=== PATIENT | female | born 1985 | race American Indian/Alaskan Native ===

== ENCOUNTER 2022-01-01 11:32 | Emergency (ER) | payer MEDICAID, OTHER ==
[~2022-01-01] VITALS: Ht 152.4 cm; Wt 72.6 kg
[2022-01-01 11:46] VITALS: BP 106/72
[2022-01-01] MEDS ORDERED: IPRATROPIUM BROM 0.5 MG/2.5ML INH SOL NEB ONE (12:00)
[2022-01-01] MEDS ORDERED: methylPREDNISolone SOD SUCC 125 MG/2 ML VL IV ONE (12:00)
[2022-01-01] MEDS ORDERED: ALBUTEROL SULF 2.5 MG/0.5ML(0.5%) NEB SOLN NEB ONE (12:00)
[2022-01-01 12:12] LABS: Basophils # (auto) 0.1 10 ^3/uL (0-0.2); Basophils % (auto) 0.7 % (0.0-2.0); Eosinophils # (auto) 0.6 10 ^3/uL (0-0.8); Eosinophils % (auto) 6.5 % (0.0-7.0); Hematocrit 36.9 % (36.0-46.0); Hemoglobin 12.8 g/dL (12.2-16.2); Lymphocytes # (auto) 1.1 10 ^3/uL (0.4-5.4); Mean Corpuscular Hgb Conc. 34.8 g/dL (32.0-36.0); Mean Corpuscular Volume 92.1 fL (80.0-100.0); Monocytes # (auto) 0.4 10 ^3/uL (0-1.3); Monocytes % (auto) 4.6 % (0.0-12.0); Neutrophils # (auto) 6.7 10 ^3/uL (1.6-8.6); Neutrophils % (auto) 76.2 % (37.0-80.0); Nucleated Red Blood Cells % 0.2 %; Red Blood Cells 4.01 10^6/uL (4.0-5.20); Red Cell Distribution Width 12.7 % (11.8-14.3); White Blood Cell 8.8 10^3/uL (4.4-10.8)
[2022-01-01 12:20] LABS: Albumin 3.5 g/dL (3.4-5.0); Calcium 8.5 mg/dL (8.5-10.1); Magnesium 2.2 mg/dL (1.6-2.6); Potassium 3.4 mmol/L (3.5-5.1)
[2022-01-01 12:22] LABS: BUN/Creatinine Ratio 15.4
[2022-01-01 12:25] LABS: Bilirubin, Total 0.1 mg/dL (0.2-1.0); Total Protein 6.9 g/dL (6.4-8.2)
[2022-01-02] MEDS ORDERED: ALBU0.084 IN (06:09)
[2022-01-02] MEDS ORDERED: PRED20TA2 PO (06:09)
[2022-01-02] MEDS ORDERED: ALBU108A5 IN (06:09)
== END 2022-01-01 17:38 | disposition left against medical advice (07) ==
LOC: ER 11:32
DX: J45.901 Unspecified asthma with (acute) exacerbation (principal); Z87.891 Personal history of nicotine dependence; Z88.0 Allergy status to penicillin; Z88.1 Allergy status to other antibiotic agents
CPT/HCPCS: 36415; 80053; 83735; 85025; 93005; 94640; 96374; 99284; J2930; J7644

== ENCOUNTER 2022-01-02 02:16 | Emergency (ER) | payer MEDICAID ==
[~2022-01-02] VITALS: Ht 162.6 cm; Wt 67.4 kg
[2022-01-02] MEDS ORDERED: ALBUTEROL SULF 2.5 MG/0.5ML(0.5%) NEB SOLN ONE (02:27)
[2022-01-02] MEDS ORDERED: predniSONE 20 MG TAB PO ONE (02:30)
[2022-01-02] MEDS ORDERED: ALBUTEROL SULF 2.5 MG/0.5ML(0.5%) NEB SOLN NEB ONE (02:30)
[2022-01-02 06:00] VITALS: BP 111/70
[2022-01-02] MEDS ORDERED: ALBU0.084 IN (06:09)
[2022-01-02] MEDS ORDERED: PRED20TA2 PO (06:09)
[2022-01-02] MEDS ORDERED: ALBU108A5 IN (06:09)
== END 2022-01-02 06:16 | disposition home or self-care (01) ==
LOC: ER 02:16
DX: J45.901 Unspecified asthma with (acute) exacerbation (principal); Z98.51 Tubal ligation status; Z87.891 Personal history of nicotine dependence
CPT/HCPCS: 94644; 99285; J7512

== ENCOUNTER 2022-06-17 17:30 | Emergency (ER) | payer MEDICAID ==
[~2022-06-17] VITALS: Ht 152.4 cm; Wt 70.5 kg
[~2022-06-17 17:30] MED LIST: ALBU0.084 IN; ALBU108A5 IN; PRED20TA2 PO
[2022-06-17 17:42] VITALS: BP 118/66
== END 2022-06-18 01:57 | disposition left against medical advice (07) ==
LOC: ER 17:30
DX: R05.9 Cough, unspecified (principal); J45.909 Unspecified asthma, uncomplicated; Z53.21 Procedure and treatment not carried out due to patient leaving prior to being seen by health care provider

== ENCOUNTER 2022-06-29 20:52 | Emergency (ER) | payer MEDICAID ==
[~2022-06-29] VITALS: Ht 152.4 cm; Wt 63.0 kg
[2022-06-29 20:59] VITALS: BP 111/65
[2022-06-29] MEDS ORDERED: IPRATROPIUM BROM 0.5 MG/2.5ML INH SOL HHN ONE (21:00)
[2022-06-29] MEDS ORDERED: methylPREDNISolone SOD SUCC 125 MG/2 ML VL IV ONE (21:00)
[2022-06-29] MEDS ORDERED: ALBUTEROL SULF 2.5 MG/0.5ML(0.5%) NEB SOLN HHN ONE (21:00)
[2022-06-29 22:37] LABS: Basophils # (auto) 0 10 ^3/uL (0-0.2); Basophils % (auto) 0.5 % (0.0-2.0); Eosinophils # (auto) 0.3 10 ^3/uL (0-0.8); Eosinophils % (auto) 3.4 % (0.0-7.0); Hematocrit 39.1 % (36.0-46.0); Hemoglobin 13.3 g/dL (12.2-16.2); Lymphocytes # (auto) 0.8 10 ^3/uL (0.4-5.4); Mean Corpuscular Hemoglobin 31.9 pg (28.0-32.0); Mean Corpuscular Hgb Conc. 34.1 g/dL (32.0-36.0); Mean Corpuscular Volume 93.6 fL (80.0-100.0); Monocytes # (auto) 0.3 10 ^3/uL (0-1.3); Monocytes % (auto) 3.1 % (0.0-12.0); Nucleated Red Blood Cells % 0.1 %; Red Blood Cells 4.18 10^6/uL (4.0-5.20); Red Cell Distribution Width 12.6 % (11.8-14.3); White Blood Cell 8.4 10^3/uL (4.4-10.8)
[2022-06-29 22:54] LABS: Alanine Aminotransferase 19 U/L (13-56); Albumin 3.5 g/dL (3.4-5.0); Anion Gap 11 (5-15); Aspartate Aminotransferase 7 U/L (15-37); BUN/Creatinine Ratio 18.2; Blood Urea Nitrogen 12 mg/dL (7-18); Calcium 8.1 mg/dL (8.5-10.1); Carbon Dioxide 22 mmol/L (21-32); Chloride 109 mmol/L (98-107); GFR African American 131 mL/min; GFR Non-African American 108 mL/min; Glucose 137 mg/dL (74-106); Potassium 3.1 mmol/L (3.5-5.1); Sodium 142 mmol/L (136-145)
[2022-06-29 22:56] LABS: Alkaline Phosphatase 83 U/L (45-117); Bilirubin, Total 0.4 mg/dL (0.2-1.0); Total Protein 6.9 g/dL (6.4-8.2)
[2022-06-30] MEDS ORDERED: PRED20TA2 PO (00:15)
[2022-06-30] MEDS ORDERED: ALBUAER3 IN (00:15)
[2022-06-30] MEDS ORDERED: ALBU1.257 IN (00:15)
== END 2022-06-30 00:33 | disposition home or self-care (01) ==
LOC: ER 20:53
DX: J45.902 Unspecified asthma with status asthmaticus (principal); Z87.891 Personal history of nicotine dependence; Z98.51 Tubal ligation status; Z20.822 Contact with and (suspected) exposure to COVID-19; Z88.0 Allergy status to penicillin
CPT/HCPCS: 36415; 71046; 80053; 85025; 87426; 94644; 96374; 99284; J2930; J7644

== ENCOUNTER 2023-07-20 09:20 | Emergency (ER) | payer MEDICAID ==
[~2023-07-20] VITALS: Ht 152.4 cm; Wt 77.2 kg
[~2023-07-20 09:20] MED LIST changes: +ALBU1.258 IN; +ALBUAER3 IN
[2023-07-20] MEDS ORDERED: ALBUTEROL MEDNEB 2.5 mg/3ml NEB NEB ONE (09:30)
[2023-07-20] MEDS ORDERED: IPRATROPIUM BROM 0.5 MG/2.5ML INH SOL NEB ONE (09:30)
[2023-07-20 09:49] VITALS: BP 114/57; PULSE 112; RESP 18; O2SAT 98
[2023-07-20] MEDS ORDERED: PRED20TA2 PO (10:22)
[2023-07-20] MEDS ORDERED: ALBU108A5 IN (10:22)
[2023-07-20] MEDS ORDERED: ALB5IS NEB (10:22)
== END 2023-07-20 10:35 | disposition home or self-care (01) ==
LOC: ER 09:20
DX: J45.901 Unspecified asthma with (acute) exacerbation (principal); Z98.51 Tubal ligation status; Z87.891 Personal history of nicotine dependence
CPT/HCPCS: 71045; 94640; 99283; J7644

== ENCOUNTER 2023-08-21 12:25 | Inpatient (IN) | payer MEDICAID ==
[~2023-08-21] VITALS: Ht 152.4 cm; Wt 76.1 kg
[2023-08-21] VITALS (7 sets, daily range): BP systolic 103–110; BP diastolic 56–68; PULSE 107–120; RESP 16–21; TEMP 98.2; O2SAT 95–100
[~2023-08-21 12:25] MED LIST changes: +ALB5IS NEB
[2023-08-21] MEDS ORDERED: IPRATROPIUM BROM 0.5 MG/2.5ML INH SOL NEB ONE (12:45)
[2023-08-21] MEDS ORDERED: methylPREDNISolone SOD SUCC 125 MG/2 ML VL IV ONE (12:45)
[2023-08-21] MEDS ORDERED: ALBUTEROL SULF 2.5 MG/0.5ML(0.5%) NEB SOLN NEB ONE ×2 (12:45→13:05)
[2023-08-21] MEDS ORDERED: MAGNESIUM SULFATE 1GM/100ML 100 ML IV ONE (12:45)
[2023-08-21 13:14] LABS: Basophils # (auto) 0.1 10 ^3/uL (0-0.2); Basophils % (auto) 1.3 % (0.0-2.0); Eosinophils # (auto) 0.7 10 ^3/uL (0-0.8); Eosinophils % (auto) 11.2 % (0.0-7.0); Hematocrit 39.1 % (36.0-46.0); Lymphocytes # (auto) 1.4 10 ^3/uL (0.4-5.4); Lymphocytes % (auto) 21.9 % (10.0-50.0); Mean Corpuscular Hemoglobin 30.5 pg (28.0-32.0); Mean Corpuscular Hgb Conc. 33.1 g/dL (32.0-36.0); Monocytes # (auto) 0.4 10 ^3/uL (0-1.3); Monocytes % (auto) 5.7 % (0.0-12.0); Neutrophils # (auto) 3.9 10 ^3/uL (1.6-8.6); Neutrophils % (auto) 59.9 % (37.0-80.0); Nucleated Red Blood Cells % 0.1 %; Red Blood Cells 4.25 10^6/uL (4.0-5.20); Red Cell Distribution Width 13.2 % (11.8-14.3); White Blood Cell 6.5 10^3/uL (4.4-10.8)
[2023-08-21 13:33] LABS: Alanine Aminotransferase 18 U/L (7-40); Alkaline Phosphatase 72 U/L (46-116)
[2023-08-21 13:34] LABS: Anion Gap 10 (5-15); Aspartate Aminotransferase 14 U/L (13-40); Bilirubin, Total 0.4 mg/dL (0.2-1.0); Calcium 9.1 mg/dL (8.5-10.1); Carbon Dioxide 24 mmol/L (20-30); Chloride 107 mmol/L (98-107); Glucose 116 mg/dL (74-106); Potassium 4.1 mmol/L (3.5-5.1); Sodium 141 mmol/L (136-145); Total Protein 5.9 g/dL (5.7-8.2)
[2023-08-21 14:03] LABS: BUN/Creatinine Ratio 15.6 (10.0-20.0); Blood Urea Nitrogen 10 mg/dL (9-23)
[2023-08-21] MEDS ORDERED: ACETAMINOPHEN 325 MG TAB PO PRN (16:00)
[2023-08-21] MEDS ORDERED: ONDANSETRON HCL 4 MG/2 ML VIAL IV PRN (16:00)
[2023-08-21 16:07] LABS: COVID19 ANTIGEN SOFIA FIA NEGATIVE (NEGATIVE); Rapid Influenza A Negative (Negative); Rapid Influenza B Negative (Negative); Respiratory Syncytial Virus Ag Negative
[2023-08-21] MEDS: ALBUTEROL SULF 2.5 MG/0.5ML(0.5%) NEB SOLN NEB SCH ×2 (18:10→22:00)
[2023-08-21] MEDS: IPRATROPIUM BROM 0.5 MG/2.5ML INH SOL NEB SCH ×2 (18:10→22:00)
[2023-08-21] MEDS: guaiFENesin 200 MG/10 ML UD GT PRN (20:11)
[2023-08-21] MEDS: methylPREDNISolone SOD SUCC 40 MG/ML VL IV SCH (22:13)
[2023-08-22] VITALS (16 sets, daily range): BP systolic 110–119; BP diastolic 53–73; PULSE 92–130; RESP 16–20; TEMP 97.8–98.3; O2SAT 94–99
[2023-08-22] MEDS: guaiFENesin 200 MG/10 ML UD GT PRN (05:31)
[2023-08-22] MEDS: methylPREDNISolone SOD SUCC 40 MG/ML VL IV SCH ×3 (05:31→21:22)
[2023-08-22 06:26] LABS: Hematocrit 39.1 % (36.0-46.0); Hemoglobin 12.9 g/dL (12.2-16.2); Mean Corpuscular Hemoglobin 30.8 pg (28.0-32.0); Mean Corpuscular Hgb Conc. 33.1 g/dL (32.0-36.0); Red Cell Distribution Width 13.2 % (11.8-14.3); White Blood Cell 18.8 10^3/uL (4.4-10.8)
[2023-08-22 06:31] LABS: Alanine Aminotransferase 22 U/L (7-40); Albumin 4.1 g/dL (3.2-4.8); Alkaline Phosphatase 72 U/L (46-116); Anion Gap 8 (5-15); Aspartate Aminotransferase 18 U/L (13-40); Blood Urea Nitrogen 13 mg/dL (9-23); Calcium 9.3 mg/dL (8.5-10.1); Carbon Dioxide 22 mmol/L (20-30); Chloride 109 mmol/L (98-107); Glucose 148 mg/dL (74-106); Potassium 4.5 mmol/L (3.5-5.1); Sodium 139 mmol/L (136-145)
[2023-08-22 06:32] LABS: Basophils % (manual) 0 (0.0-2.0); Bilirubin, Total 0.4 mg/dL (0.2-1.0); Blast Cells 0; Eosinophils % (manual) 0 (0-7); Metamyelocytes % 0; Myelocytes % 0; Reactive Lymphocytes 0; Total Protein 6.4 g/dL (5.7-8.2)
[2023-08-22] MEDS: IPRATROPIUM BROM 0.5 MG/2.5ML INH SOL NEB SCH ×5 (06:52→21:56)
[2023-08-22] MEDS: ALBUTEROL SULF 2.5 MG/0.5ML(0.5%) NEB SOLN NEB SCH ×5 (06:52→21:55)
[2023-08-22 08:12] LABS: Platelet Estimate Adequate
[2023-08-22 08:16] LABS: Band Neutrophils % (manual) 1; Lymphocytes % (manual) 2 (10.0-50.0); Monocytes % (manual) 2 (0-12); Promyelocytes % 2
[2023-08-22] MEDS: PANTOPRAZOLE 40 MG TAB PO SCH (09:15)
[2023-08-22] MEDS ORDERED: guaiFENesin 200 MG/10 ML UD PO PRN (10:00)
[2023-08-22] MEDS ORDERED: MONTELUKAST SODIUM 10 MG TAB PO ONE (10:00)
[2023-08-22] MEDS ORDERED: cefTRIAXone 1GM/50ML D5W 50 ML IV ONE (10:00)
[2023-08-22] MEDS: AZITHROMYCIN 250 MG TAB PO SCH (10:48)
[2023-08-22] MEDS: BUDESONIDE (INHALATION) 0.5 MG/2 ML NEB NEB SCH ×2 (10:57→17:56)
[2023-08-22] MEDS ORDERED: MONTELUKAST SODIUM 10 MG TAB PO SCH (22:00)
[2023-08-23] VITALS (8 sets, daily range): BP systolic 104–128; BP diastolic 61–78; PULSE 81–102; RESP 18; TEMP 37.2; O2SAT 96–100
[2023-08-23] MEDS: ALBUTEROL SULF 2.5 MG/0.5ML(0.5%) NEB SOLN NEB SCH ×2 (05:50→10:19)
[2023-08-23] MEDS: BUDESONIDE (INHALATION) 0.5 MG/2 ML NEB NEB SCH (05:50)
[2023-08-23] MEDS: IPRATROPIUM BROM 0.5 MG/2.5ML INH SOL NEB SCH ×2 (05:50→10:19)
[2023-08-23] MEDS ORDERED: cefTRIAXone 1GM/50ML D5W 50 ML IV SCH (09:00)
[2023-08-23] MEDS: PANTOPRAZOLE 40 MG TAB PO SCH (09:35)
[2023-08-23] MEDS: AZITHROMYCIN 250 MG TAB PO SCH (09:35)
[2023-08-23] MEDS ORDERED: PRED20TA2 PO (09:49)
[2023-08-23] MEDS ORDERED: ALBUAER3 IN (09:49)
[2023-08-23] MEDS ORDERED: ALBU1.258 IN (09:49)
[2023-08-23] MEDS ORDERED: BUDE1AER4 IN (09:49)
[2023-08-23] MEDS ORDERED: AZITTAB2 PO (09:49)
[2023-08-23] MEDS: methylPREDNISolone SOD SUCC 40 MG/ML VL IV SCH (10:00)
[2023-08-23] MEDS ORDERED: methylPREDNISolone SOD SUCC 125 MG/2 ML VL ONE (10:28)
== END 2023-08-23 13:45 | disposition home or self-care (01) | DRG 137 ==
LOC: ER 12:25 → OVERFLOW 16:04 → CENTRAL 17:33
PROVIDERS: ADMIT Nurse Practitioner Family; ATTEND Internal Medicine
DX: J15.69 Pneumonia due to other Gram-negative bacteria (principal); J45.901 Unspecified asthma with (acute) exacerbation; E66.9 Obesity, unspecified; Z88.0 Allergy status to penicillin; Z68.32 Body mass index [BMI] 32.0-32.9, adult; Z20.822 Contact with and (suspected) exposure to COVID-19; J15.9 Unspecified bacterial pneumonia
CPT/HCPCS: 36415; 71045; 80053; 83880; 84484; 85007; 85025; 85027; 87426; 87804; 87807; 94640; 94644; 96365; 96375; G0378; J0696

== ENCOUNTER 2024-01-13 18:02 | Emergency (ER) | payer MEDICAID ==
[~2024-01-13] VITALS: Ht 152.4 cm; Wt 75.0 kg
[~2024-01-13 18:02] MED LIST changes: +AZITTAB2 PO; +BUDE1AER4 IN
[2024-01-13] MEDS: methylPREDNISolone SOD SUCC 500 MG in SODIUM CHL 0.9% 100 ML IV ONE (18:15)
[2024-01-13] MEDS: methylPREDNISolone SOD SUCC 125 MG/2 ML VL ONE (18:36)
[2024-01-13 18:41] LABS: Basophils # (auto) 0.1 10 ^3/uL (0-0.2); Basophils % (auto) 1.1 % (0.0-2.0); Eosinophils # (auto) 0.7 10 ^3/uL (0-0.8); Eosinophils % (auto) 9.3 % (0.0-7.0); Hematocrit 40.9 % (36.0-46.0); Hemoglobin 13.6 g/dL (12.2-16.2); Lymphocytes # (auto) 1.9 10 ^3/uL (0.4-5.4); Lymphocytes % (auto) 23.5 % (10.0-50.0); Mean Corpuscular Hemoglobin 30.4 pg (28.0-32.0); Mean Corpuscular Hgb Conc. 33.3 g/dL (32.0-36.0); Mean Corpuscular Volume 91.1 fL (80.0-100.0); Monocytes # (auto) 0.4 10 ^3/uL (0-1.3); Monocytes % (auto) 5.3 % (0.0-12.0); Neutrophils # (auto) 4.8 10 ^3/uL (1.6-8.6); Neutrophils % (auto) 60.8 % (37.0-80.0); Nucleated Red Blood Cells % 0.1 %; Red Blood Cells 4.49 10^6/uL (4.0-5.20); Red Cell Distribution Width 13.3 % (11.8-14.3); White Blood Cell 7.9 10^3/uL (4.4-10.8)
[2024-01-13] MEDS: ALBUTEROL SULF 2.5 MG/0.5ML(0.5%) NEB SOLN NEB ONE (18:43)
[2024-01-13 18:46] VITALS: PULSE 100; RESP 24; TEMP 98.8; O2SAT 97
[2024-01-13 18:50] LABS: Alanine Aminotransferase 12 U/L (7-40); Albumin 4.3 g/dL (3.2-4.8); Alkaline Phosphatase 92 U/L (46-116); Anion Gap 10 (5-15); Aspartate Aminotransferase 12 U/L (13-40); BUN/Creatinine Ratio 15.5 (10.0-20.0); Blood Urea Nitrogen 11 mg/dL (9-23); Calcium 9.4 mg/dL (8.5-10.1); Carbon Dioxide 21 mmol/L (20-30); Chloride 111 mmol/L (98-107); Glucose 92 mg/dL (74-106); Potassium 3.6 mmol/L (3.5-5.1); Sodium 142 mmol/L (136-145)
[2024-01-13 18:51] LABS: Bilirubin, Total 0.2 mg/dL (0.2-1.0); Total Protein 6.7 g/dL (5.7-8.2)
[2024-01-13] MEDS: methylPREDNISolone SOD SUCC 40 MG/ML VL ONE (19:46)
[2024-01-13 20:05] VITALS: BP 109/54
[2024-01-13 20:06] VITALS: PULSE 105; RESP 28; O2SAT 100
[2024-01-13] MEDS ORDERED: ALBUAER3 IN (20:23)
[2024-01-13] MEDS ORDERED: ALB2.5IS NEB (20:23)
[2024-01-13] MEDS ORDERED: PRED20TA2 PO (20:23)
[2024-01-13] MEDS ORDERED: AZITTAB2 PO (20:23)
== END 2024-01-13 20:26 | disposition home or self-care (01) ==
LOC: ER 18:10
DX: J45.901 Unspecified asthma with (acute) exacerbation (principal); R07.89 Other chest pain; Z87.891 Personal history of nicotine dependence
CPT/HCPCS: 36415; 71045; 80053; 84484; 85025; 94640; 96365; 96366; 99284; J2920; J2930

== ENCOUNTER 2024-04-10 12:59 | Emergency (ER) | payer MEDICAID ==
[~2024-04-10] VITALS: Ht 152.4 cm; Wt 75.0 kg
[~2024-04-10 12:59] MED LIST changes: +ALB2.5IS NEB
[2024-04-10] MEDS: ALBUTEROL SULF 2.5 MG/0.5ML(0.5%) NEB SOLN NEB ONE ×2 (13:08→13:52)
[2024-04-10] MEDS: IPRATROPIUM BROM 0.5 MG/2.5ML INH SOL NEB ONE ×2 (13:08→13:52)
[2024-04-10 13:23] VITALS: PULSE 80; RESP 23; O2SAT 100
[2024-04-10 13:39] LABS: Basophils # (auto) 0.1 10 ^3/uL (0-0.2); Basophils % (auto) 0.9 % (0.0-2.0); Eosinophils # (auto) 0.3 10 ^3/uL (0-0.8); Eosinophils % (auto) 4.3 % (0.0-7.0); Hematocrit 41.1 % (36.0-46.0); Lymphocytes # (auto) 2.1 10 ^3/uL (0.4-5.4); Mean Corpuscular Hemoglobin 31.5 pg (28.0-32.0); Mean Corpuscular Volume 92.7 fL (80.0-100.0); Monocytes # (auto) 0.4 10 ^3/uL (0-1.3); Neutrophils # (auto) 3.8 10 ^3/uL (1.6-8.6); Neutrophils % (auto) 56.8 % (37.0-80.0); Nucleated Red Blood Cells % 0.1 %; Red Blood Cells 4.44 10^6/uL (4.0-5.20); Red Cell Distribution Width 13.2 % (11.8-14.3); White Blood Cell 6.6 10^3/uL (4.4-10.8)
[2024-04-10] MEDS: methylPREDNISolone SOD SUCC 125 MG/2 ML VL IV ONE (13:40)
[2024-04-10 13:49] LABS: Chloride 109 mmol/L (98-107); Sodium 143 mmol/L (136-145)
[2024-04-10 13:50] LABS: Anion Gap 9 (5-15); Calcium 9.6 mg/dL (8.7-10.4); Carbon Dioxide 25 mmol/L (20-30)
[2024-04-10 13:55] LABS: BUN/Creatinine Ratio 16.9 (10.0-20.0); Blood Urea Nitrogen 12 mg/dL (9-23); Glucose 94 mg/dL (74-106)
[2024-04-10 15:18] LABS: Urine Bacteria None Seen /hpf (None Seen)
[2024-04-10 15:35] LABS: Urine Amorphous Crystal FEW /hpf (None Seen); Urine Blood Negative /uL (Negative); Urine Clarity Clear (Clear); Urine Color Light-Yellow (Yellow); Urine Protein, UAD Negative (Negative); Urine Urobilinogen Normal (Negative); Urine WBC <1 /hpf (0 - 5); Urine pH 6.5 (5.0-9.0)
[2024-04-10] MEDS ORDERED: ALBU1NEB5 IN (17:19)
[2024-04-10] MEDS ORDERED: AZITTAB2 PO (17:19)
[2024-04-10] MEDS ORDERED: PRED20TA2 PO (17:20)
[2024-04-10 17:26] VITALS: BP 109/66; PULSE 100; RESP 18; TEMP 98.6; O2SAT 98
== END 2024-04-10 17:29 | disposition home or self-care (01) ==
LOC: ER 12:59
DX: J45.901 Unspecified asthma with (acute) exacerbation (principal); R10.2 Pelvic and perineal pain; R10.9 Unspecified abdominal pain; Z98.890 Other specified postprocedural states; Z87.891 Personal history of nicotine dependence
CPT/HCPCS: 36415; 71045; 80048; 81001; 83880; 84484; 84702; 85025; 94640; 96374; 99285; J2919

== ENCOUNTER 2025-04-28 11:41 | Inpatient (IN) | payer MEDICAID ==
[2025-04-28] VITALS (7 sets, daily range): BP systolic 107–115; BP diastolic 65–77; PULSE 78–113; RESP 16–24; TEMP 98–98.1; O2SAT 94–100
[~2025-04-28] VITALS: Ht 152.4 cm; Wt 80.1 kg
[~2025-04-28 11:41] MED LIST changes: +ALBU1NEB5 IN
--- NOTE | 2025-04-28 12:29 | ED.PDOC ---
SOB-HPI HPI Comments 39 y.o female with a history of asthma presents to the ED via EMS for an asthma exacerbation that began 12 hours prior to arrival and worsened in the last 45 minutes, prompting a 911 call. The patient self-administered two home breathing treatments without relief. EMS noted inspiratory and expiratory wheezing with a heart rate of 117 bpm on scene. The patient received a breathing treatment with 0.3mg of EPI en route, which she had slight improvement. The patient is currently unable to complete sentences due to respiratory distress and gestures that her last asthma exacerbation was two months ago. 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-4 ), Web Interface Developer, Oxygen, Treatment (0.3mg Epi ) Modifying Factors: Nothing Associated Signs and Symptoms: None Past Medical History PAST MEDICAL HISTORY: Asthma Surgical History: BTL [employer] History: No Pertinent [employer] History Family History Family History: Reviewed,noncontributory to illness Social History Smoker: Quit Greater Than 1 Year, Cigarettes Alcohol: Denies ETOH Use Drugs: Denies Drug Use Lives In: Home Constitutional: denies: chills, diaphoresis, fatigue, fever, malaise, sweats, weakness, others EENTM: denies: blurred vision, double vision, ear bleeding, ear discharge, ear drainage, ear pain, ear ringing, eye pain, eye redness, hearing loss, mouth pain, mouth swelling, nasal discharge, nose bleeding, nose congestion, nose pain, photophobia, tearing, throat pain, throat swelling, voice changes, others Respiratory: reports: SOB at rest, shortness of breath, SOB with excertion; denies: cough, hemoptysis, orthopnea, stridor, wheezing, others Cardiovascular: denies: chest pain, dizzy spells, diaphoresis, Dyspnea on exertion, edema, irregular heart beat, left arm pain, lightheadedness, palpitations, PND, syncope, others Gastrointestinal: denies: abdomen distended, abdominal pain, blood streaked bowels, constipated, diarrhea, dysphagia, difficulty swallowing, hematemesis, melena, nausea, poor appetite, poor fluid intake, rectal bleeding, rectal pain, vomiting, others Genitourinary: denies: abnormal vagina bleeding, burning, dyspareunia, dysuria, flank pain, frequency, hematuria, incontinence, pain, , vagina discharge, urgency, others Neurological: denies: dizziness, fainting, headache, left sided numbness, left sided weakness, numbness, paresthesia, pre-existing deficit, right sided numbness, right sided weakness, seizure, speech problems, tingling, tremors, weakness, others Musculoskeletal: denies: back pain, gout, joint pain, joint swelling, muscle pain, muscle stiffness, neck pain, others Integumetry: denies: bruises, change in color, change in hair/nails, dryness, laceration, lesions, lumps, rash, wounds, others Allergic/Immunocompromised: denies: Difficulty Healing, Frequent Infections, Hives, Itching, others Hematologic/Lymphatic: denies: anemia, blood clots, easy bleeding, easy bruising, swollen glands, others Endocrine: denies: excessive hunger, excessive sweating, excessive thirst, excessive urination, flushing, intolerance to cold, intolerance to heat, unexplained weight gain, unexplained weight loss, others Psychiatric: denies: anxiety, bipolar disorder, depression, hopeless, panic disorder, schizophrenia, sleepless, suicidal, others All Other Systems: Reviewed and Negative Physical Exam General Appearance: Moderate Distress HEENT: Normal ENT Inspection, Pharynx Normal, TMs Normal Neck: Full Range of Motion, Non-Tender, Normal, Normal Inspection Respiratory: Accessory Muscle Use, Respiratory Distress, Wheezing Cardiovascular: No Edema, No JVD, No Murmur, No Gallop, Normal Peripheral Pulses, Tachycardia Breast Exam: Deferred Gastrointestinal: No Organomegaly, Non Tender, No Pulsatile Mass, Normal Bowel Sounds, Soft Genitalia: Deferred Pelvic: Deferred Rectal: Deferred Extremities: No calf tenderness Musculoskeletal : Apperance: Normal Neurologic: Alert, No Motor Deficits, No Sensory Deficits Cerebellar Function: NOT DONE Reflexes: NOT DONE Skin: Normal Color Peripheral Pulses: 3+ Radial (R), 3+ Radial (L) Lymphatic: No Adenopathy Was a procedure done? Was a procedure done?: No Differential Dx Differential Diagnosis: Anxiety, Asthma, Bronchitis, COPD, Pneumonia, Respiratory Distress, URI X-Ray, Labs, Meds, VS Vital Signs Date Time Temp Pulse Resp B/P (MAP) Pulse Ox O2 Delivery O2 Flow Rate FiO2 04/28/25 11:45 98.1 109 30 105/64 100 98.1 Current Medications Medications (Trade) Dose Ordered Sig/Howie Route Start Time Stop Time Status Last Admin Albuterol (Ventolin Medneb) 20 mg ONCE ONCE NEB 04/28/25 12:30 04/28/25 12:31 DC 04/28/25 12:55 Ipratropium [place] (Atrovent Medneb) 0.5 mg ONCE ONCE NEB 04/28/25 12:30 04/28/25 12:31 DC 04/28/25 12:54 Patient alert. Complaining of shortness a breath. Came in on oxygen. Was given breathing treatment in the field. Continues to use accessory muscles pain Was given steroid. Was given breathing treatment in the ER. History of asthma. Chest x-ray reviewed does show some edema. Was given Lasix. Reviewed her previous visit. Explained to the patient. Continue to monitor. Time of 1ST Reevaluation: 12:10 Reevaluation 1ST: Unchanged Patient Education/Counseling: Diagnosis, Treatment, Prognosis Family Education/Counseling: No Family Present SEPSIS Sepsis Screen Date sepsis recognized/suspect: Apr 28, 2025 Time Sepsis recognized/suspect: 1148 Recent Procedure: No On Antibiotic Therapy: No Respiratory Rate >20: Yes Heart Rate >90: Yes Temp<36 C (96.8 F) or >38.3 C: No SBP <90 or MAP <65 mmHG: No New Acute Mental Status Change: No Is the patient on CPAP, BIPAP,: No Physician Orders Complete Blood Count (04/28/25 12:29) Chest Portable (04/28/25 12:29) Urinalysis (04/28/25 12:29) Basic Metabolic Panel (04/28/25 12:29) Magnesium Sulfate 1gm/100ml (04/28/25 12:30) Vital Signs Date Time Temp Pulse Resp B/P (MAP) Pulse Ox O2 Delivery O2 Flow Rate FiO2 04/28/25 11:45 98.1 109 30 105/64 100 98.1 Medications Medications Dose Ordered Sig/Howie Route Start Time Stop Time Status Last Admin Dose Admin Albuterol 20 mg ONCE ONCE NEB 04/28/25 12:30 04/28/25 12:31 DC 04/28/25 12:55 Ipratropium [place] 0.5 mg ONCE ONCE NEB 04/28/25 12:30 04/28/25 12:31 DC 04/28/25 12:54 Departure 1 Departure Time of Disposition: 13:06 Impression: Primary Impression: Acute asthma exacerbation Qualified Codes: J45.41 - Moderate persistent asthma with (acute) exacerbation Disposition: ADMITTED INPATIENT Admit to: Med Surg Condition: Guarded Critical Care Note Critical Care Time?: Yes (90 min-critical care time only) Stability Stability form required: No I personally scribed for JAYLENE NELSON MD ([email or web address]) on 04/28/25 at 12:29. Electronically submitted by Loyda Wallace ([facility]). JAYLENE NELSON MD Apr 28, 2025 12:29
[2025-04-28] MEDS: IPRATROPIUM BROM 0.5 MG/2.5ML INH SOL NEB ONE (12:54)
[2025-04-28] MEDS: ALBUTEROL SULF 2.5 MG/0.5ML(0.5%) NEB SOLN NEB ONE (12:55)
--- NOTE | 2025-04-28 13:00 | DVH ---
INDICATION: sob TECHNIQUE: Frontal view of the chest. COMPARISON: XY CHEST PORTABLE on DOS: 04/10/24, XY CHEST PORTABLE on DOS: 01/13/24, XY CHEST PORTABLE on DOS: 08/21/23, XY CHEST XRAY 1 VIEW on DOS: 07/20/23, CHEST TWO VIEWS ROUTINE on DOS: 06/29/22 FINDINGS: . The heart and mediastinal contours are grossly unremarkable. There is no evidence of pleural disea se. The lungs are clear. The bony structures of the chest are intact without fracture. IMPRESSION: Mild pulmonary edema
[2025-04-28 13:23] LABS: Hematocrit 37.7 % (36.0-46.0); Hemoglobin 12.9 g/dL (12.2-16.2); Mean Corpuscular Hemoglobin 30.4 pg (28.0-32.0); Mean Corpuscular Volume 88.6 fL (80.0-100.0); Nucleated Red Blood Cells % 0.0 %
[2025-04-28] MEDS: FUROSEMIDE 40 MG/4 ML VIAL IV ONE (13:23)
[2025-04-28] MEDS: methylPREDNISolone SOD SUCC 125 MG/2 ML VL IV ONE (13:23)
[2025-04-28 13:39] LABS: Potassium 3.7 mmol/L (3.5-5.1); Sodium 142 mmol/L (136-145)
[2025-04-28 13:40] LABS: Anion Gap 7 (5-15); Carbon Dioxide 24 mmol/L (20-31)
[2025-04-28] MEDS: MAGNESIUM SULFATE 1GM/100ML 100 ML IV ONE (13:41)
[2025-04-28 13:45] LABS: BUN/Creatinine Ratio 14.9 (10.0-20.0); Blood Urea Nitrogen 10 mg/dL (9-23); Glucose 106 mg/dL (74-106)
[2025-04-28 13:51] LABS: Calcium 8.1 mg/dL (8.7-10.4); Chloride 111 mmol/L (98-107)
[2025-04-28] MEDS ORDERED: ACETAMINOPHEN 325 MG TAB PO PRN (14:15)
[2025-04-28] MEDS ORDERED: ONDANSETRON HCL 4 MG/2 ML VIAL IV PRN (14:15)
[2025-04-28 15:05] LABS: Urine Protein, UAD Negative (Negative)
[2025-04-28 15:14] LABS: Amphetamine Screen, Urine Pos (NEGATIVE); Barbiturate Scree,Urine Neg (NEGATIVE); Benzodiazephine Screen, Urine Neg (NEGATIVE); Cannabinoid Screen, Urine Neg (NEGATIVE); Cocaine Screen, Urine Neg (NEGATIVE); Opiate Scree,Urine Neg (NEGATIVE); Phencyclidine Screen, Urine Neg (NEGATIVE)
--- NOTE | 2025-04-28 18:18 | DVHHPRES ---
History of Present Illness Resident Creating Document: KIKI LIANG RESDIENT History of Present Illness This is a 39-year-old female with past medical history of asthma came to the hospital due to shortness of breaths. Per patient she has shortness of breath since 1 days, use inhaler at home better did not relieved and shortness of breaths which prompted this visit. She also reports of mild chest discomfort. She denies fever, cough, or any recent sick contact. Previous hospitalization: Recurrent hospitalization due to asthma exacerbation, recently was 2 months back has never been intubated PMHx: Asthma PSHx: No significant Family history: No significant Social history: Ex-smoker, denies current drug use Home medication: Albuterol and fluticasone Allergic history: Ampicillin and amoxicillin Patient seen and examined at the bedside. Patient is seen and shortness of breaths. Review of Systems Allergies: Coded Allergies: Amoxicillin (Verified Allergy, Unknown, 01/01/22) Penicillins (Verified Allergy, Unknown, 01/01/22) Medications Current Medications Medications Dose Ordered Sig/Howie Route Start Time Stop Time Status Last Admin Dose Admin Acetaminophen 650 mg Q6HP PRN PO 04/28/25 14:15 Ondansetron HCl 4 mg Q4HP PRN IV 04/28/25 14:15 Enoxaparin Sodium 40 mg DAILY SC 04/29/25 10:00 Methylprednisolone Sodium Succinate 40 mg DAILY IV 04/29/25 10:00 Albuterol 2.5 mg Q6HWA NEB 04/28/25 18:00 Ipratropium [place] 0.5 mg Q6HWA NEB 04/28/25 18:00 Exam Vital Signs Vital Signs Date Time Temp Pulse Resp B/P (MAP) Pulse Ox O2 Delivery O2 Flow Rate FiO2 04/28/25 18:07 104 16 04/28/25 15:00 115/77 (90) 96 04/28/25 14:55 0.0 21 04/28/25 12:00 Simple Mask* 04/28/25 11:45 98.1 98.1 Exam General Appearance: Alert, Oriented X3, Cooperative, No acute distress HEENT: Atraumatic, PERRLA, EOMI, Mucous membrane moist/pink Respiratory: Bilateral rhonchi Cardiovascular: Regular rate, Normal S1, Normal S2, No murmurs, no chest wall tenderness Abdominal: Normal bowel sounds, Soft, No tenderness, No hepatospenomegaly, No masses Extremities: No clubbing, No cyanosis, No edema, Normal pulses, No tenderness/swelling Skin: No rashes, No breakdown, No significant lesion Neuro: Normal gait, Normal speech, Strength at 5/5 X4 ext, Normal tone, Sensation intact, Cranial nerves 3-12 NL, Reflexes 2+ Psych/Mental Status: Mental status NL, Mood NL Labs/Xrays Labs Test 04/28/25 14:16 04/28/25 13:01 Range/Units Urine Color Colorless Yellow Urine Clarity Clear Clear Urine pH 6.5 5.0-9.0 Urine Specific [place] 1.009 1.001-1.035 Urine Protein Negative Negative Urine Ketones Negative Negative Urine Blood Negative Negative /uL Urine Nitrite Negative Negative Urine Bilirubin Negative Negative Urine Urobilinogen Normal Negative mg/dL Urine Leukocyte Esterase Negative Negative /uL Urine RBC 1 0 - 4 /hpf Urine Microscopic WBC 1 0-5 /HPF Urine Squamous Epithelial Cells Few <5 /hpf Urine Bacteria None seen None Seen /hpf Urine Mucus Few None Seen Urine Glucose Normal Normal mg/dL Urine Opiates Screen Neg NEGATIVE Urine Fentanyl Screen Neg NEGATIVE Urine Barbiturates Screen Neg NEGATIVE Urine Phencyclidine Screen Neg NEGATIVE Urine Amphetamines Screen Pos NEGATIVE Urine Benzodiazepines Screen Neg NEGATIVE Urine Cocaine Screen Neg NEGATIVE Urine Cannabinoids Screen Neg NEGATIVE White Blood Count 9.2 4.4-10.8 10^3/uL Red Blood Count 4.25 4.0-5.20 10^6/uL Hemoglobin 12.9 12.2-16.2 g/dL Hematocrit 37.7 36.0-46.0 % Mean Corpuscular Volume 88.6 80.0-100.0 fL Mean Corpuscular Hemoglobin 30.4 28.0-32.0 pg Mean Corpuscular Hemoglobin Concent 34.2 32.0-36.0 g/dL Red Cell Distribution Width 13.9 11.8-14.3 % Platelet Count 295 140-450 10^3/uL Mean Platelet Volume 8.4 6.9-10.8 fL Neutrophils (%) (Auto) 72.3 37.0-80.0 % Lymphocytes (%) (Auto) 15.0 10.0-50.0 % Monocytes (%) (Auto) 6.1 0.0-12.0 % Eosinophils (%) (Auto) 5.9 0.0-7.0 % Basophils (%) (Auto) 0.7 0.0-2.0 % Neutrophils # (Auto) 6.7 1.6-8.6 10 ^3/uL Lymphocytes # (Auto) 1.4 0.4-5.4 10 ^3/uL Monocytes # (Auto) 0.6 0-1.3 10 ^3/uL Eosinophils # (Auto) 0.5 0-0.8 10 ^3/uL Basophils # (Auto) 0.1 0-0.2 10 ^3/uL Nucleated Red Blood Cells 0.0 % Sodium Level 142 136-145 mmol/L Potassium Level 3.7 3.5-5.1 mmol/L Chloride Level 111 H 98-107 mmol/L Carbon Dioxide Level 24 20-31 mmol/L Anion Gap 7 5-15 Blood Urea Nitrogen 10 9-23 mg/dL Creatinine 0.67 0.550-1.02 mg/dL Glomerular Filtration Rate Calc 115 >90 mL/min BUN/Creatinine Ratio 14.9 10.0-20.0 Serum Glucose 106 74-106 mg/dL Calcium Level 8.1 L 8.7-10.4 mg/dL SEPSIS Sepsis Screen Date sepsis recognized/suspect: Apr 28, 2025 Time Sepsis recognized/suspect: 1807 Recent Procedure: No On Antibiotic Therapy: No Respiratory Rate >20: No Heart Rate >90: Yes Temp<36 C (96.8 F) or >38.3 C: No SBP <90 or MAP <65 mmHG: No New Acute Mental Status Change: No Is the patient on CPAP, BIPAP,: No Physician Orders Chest Portable (04/28/25 12:29) Admit (04/28/25 14:14) Code Status (04/28/25 14:14) Vital Signs .PER UNIT PROTOCOL (04/28/25 14:14) Review Orders With Adm. (04/28/25 14:14) Acetaminophen Tablet (Tylenol Tablet) (04/28/25 14:15) Notify Md Of Changes From Base (04/28/25 14:14) Advance Directive (04/28/25 14:14) Patient Condition (04/28/25 14:14) Allergies (04/28/25 14:14) Ondansetron Hcl (Zofran) (04/28/25 14:15) Stat Ekg For Chest Pain (04/28/25 14:14) Notify Md Of Changes From Base (04/28/25 14:14) Oxygen By Nasal Cannula (04/28/25 14:14) Complete Blood Count (04/29/25 04:00) Comprehensive Metabolic Panel (04/29/25 04:00) Methylprednisolone Sod Succ (Solu Medrol (04/29/25 10:00) Albuterol Medneb (Ventolin Medneb) (04/28/25 18:00) Ipratropium Medneb (Atrovent Medneb) (04/28/25 18:00) Enoxaparin Sodium (Lovenox) (04/29/25 10:00) Vital Signs Date Time Temp Pulse Resp B/P (MAP) Pulse Ox O2 Delivery O2 Flow Rate FiO2 04/28/25 18:07 104 16 04/28/25 15:00 94 16 115/77 (90) 96 04/28/25 14:55 78 18 115/77 98 0.0 21 04/28/25 13:30 93 15 113/75 (88) 99 04/28/25 13:23 103/70 04/28/25 12:00 93 19 100 Simple Mask* 6 50 04/28/25 12:00 93 19 106/63 (77) 100 04/28/25 11:45 98.1 109 30 105/64 100 98.1 Laboratory Tests Test 04/28/25 13:01 White Blood Count 9.2 10^3/uL (4.4-10.8) Medications Medications Dose Ordered Sig/Howie Route Start Time Stop Time Status Last Admin Dose Admin Albuterol 20 mg ONCE ONCE NEB 04/28/25 12:30 04/28/25 12:31 DC 04/28/25 12:55 20 MG Furosemide 40 mg ONCE ONCE IV 04/28/25 13:15 04/28/25 13:16 DC 04/28/25 13:23 40 MG Ipratropium [place] 0.5 mg ONCE ONCE NEB 04/28/25 12:30 04/28/25 12:31 DC 04/28/25 12:54 0.5 MG Magnesium Sulfate/ Dextrose 100 ml @ 100 mls/hr ONCE ONCE IV 04/28/25 12:30 04/28/25 13:29 DC 04/28/25 13:41 100 MLS/HR Methylprednisolone Sodium Succinate 125 mg ONCE ONCE IV 04/28/25 12:30 04/28/25 12:31 DC 04/28/25 13:23 125 MG Assessment/Plan Assessment/Plan Acute hypoxic respiratory failure, likely due to asthma exacerbation Asthma exacerbation * Chest x-ray shows, no intrathoracic abnormalities Plan/recommendation * Oxygen through nasal cannula * Breathing treatment * Methylprednisolone DIET: Regular diet DVT PROPHYLAXIS: Lovenox CODE STATUS: Goal of care discussed for more than 18 minutes, full code DISPOSITION: Med/surge Patient's status and plan discussed with the patient. Case discussed with Dr. Pickering. Plan discussed with: Patient, Other (RN) My Orders Orders - KIKI LIANG RESDIKOKO Procedure Category Date Status Time Admit ADMIT 04/28/25 Transmitted 14:14 Code Status CODE 04/28/25 Transmitted 14:14 Vital Signs [facility] 04/28/25 In Process 14:14 Review Orders With [facility] 04/28/25 In Process Adm.Md 14:14 Acetaminophen Tablet PHA 04/28/25 In Process (Tylenol Tablet) 14:15 Notify Md Of Changes [facility] 04/28/25 In Process From Base 14:14 Advance Directive [facility] 04/28/25 In Process 14:14 Patient Condition ORDERS 04/28/25 Transmitted 14:14 Allergies NICK 04/28/25 In Process 14:14 Ondansetron Hcl PHA 04/28/25 In Process (Zofran) 14:15 Stat Ekg For Chest [facility] 04/28/25 In Process Pain 14:14 Notify Md Of Changes [facility] 04/28/25 In Process From Base 14:14 Oxygen By Nasal RT 04/28/25 Transmitted Cannula 14:14 Complete Blood Count LAB 04/29/25 Verified 04:00 Comprehensive LAB 04/29/25 Verified Metabolic Panel 04:00 Methylprednisolone PHA 04/29/25 In Process Sod Succ (Solu Medrol 10:00 Albuterol Medneb PHA 04/28/25 In Process (Ventolin Medneb) 18:00 Ipratropium Medneb PHA 04/28/25 In Process (Atrovent Medneb) 18:00 Enoxaparin Sodium PHA 04/29/25 In Process (Lovenox) 10:00 Date of Service: Apr 28, 2025 Billing Provider: ANTONIO TOURE MD Common Visit Codes: [id number] INP/OBS CARE (HIGH) Secondary Visit Codes: [id number] CARE PLAN 30 MINUTES KIKI LIANG Apr 28, 2025 18:18 ANTONIO TOURE MD Apr 29, 2025 00:57
[2025-04-28] MEDS: ALBUTEROL SULF 2.5 MG/0.5ML(0.5%) NEB SOLN NEB SCH (19:09)
[2025-04-28] MEDS: IPRATROPIUM BROM 0.5 MG/2.5ML INH SOL NEB SCH (19:09)
[2025-04-29] VITALS (16 sets, daily range): BP systolic 102–116; BP diastolic 59–74; PULSE 89–124; RESP 16–20; TEMP 98–98.5; O2SAT 92–100
[2025-04-29 08:08] LABS: Hematocrit 36.3 % (36.0-46.0); Hemoglobin 12.4 g/dL (12.2-16.2); Mean Corpuscular Hemoglobin 30.7 pg (28.0-32.0); Mean Corpuscular Volume 89.7 fL (80.0-100.0); Nucleated Red Blood Cells % 0.0 %
[2025-04-29 08:13] LABS: Alanine Aminotransferase 13 U/L (7-40); Albumin 4.0 g/dL (3.2-4.8); Alkaline Phosphatase 75 U/L (46-116); Anion Gap 10 (5-15); BUN/Creatinine Ratio 15.0 (10.0-20.0); Bilirubin, Total 0.4 mg/dL (0.2-1.0); Blood Urea Nitrogen 9 mg/dL (9-23); Potassium 4.2 mmol/L (3.5-5.1); Sodium 140 mmol/L (136-145); Total Protein 5.9 g/dL (5.7-8.2)
[2025-04-29 08:16] LABS: Calcium 8.4 mg/dL (8.7-10.4); Carbon Dioxide 20 mmol/L (20-31); Chloride 110 mmol/L (98-107); Glucose 129 mg/dL (74-106)
[2025-04-29] MEDS: methylPREDNISolone SOD SUCC 40 MG/ML VL IV SCH (10:04)
[2025-04-29] MEDS: ENOXAPARIN SOD 40 MG/0.4 ML SYRINGE SC SCH (10:04)
[2025-04-29] MEDS: IPRATROPIUM BROM 0.5 MG/2.5ML INH SOL NEB SCH (11:52)
[2025-04-29] MEDS: ALBUTEROL SULF 2.5 MG/0.5ML(0.5%) NEB SOLN NEB SCH (11:55)
[2025-04-29] MEDS: predniSONE 20 MG TAB PO ONE (15:39)
[2025-04-29] MEDS: MONTELUKAST SODIUM 10 MG TAB PO ONE (15:39)
[2025-04-29] MEDS: LORATADINE 10 MG TAB PO ONE (15:40)
[2025-04-29] MEDS: FAMOTIDINE 20 MG TAB PO ONE (15:43)
[2025-04-29] MEDS: FLUTICASONE PROP NASAL SPR 0.05 % (50MCG) 16GM EACHNOSTRI ONE (15:43)
--- NOTE | 2025-04-29 17:12 | DVHPNRES ---
Progress Note Date Seen: Apr 29, 2025 Resident Creating Document: KIKI LIANG RESDIENT Medical Necessity Reason Pt with a Central, PICC or Fol: No Subjective Review of Systems Patient seen and examined at bedside. Patient is feeling better since admission but still complained of shortness of breaths. Objective vital signs Vital Sign Date Time Temp Pulse Resp B/P (MAP) Pulse Ox O2 Delivery O2 Flow Rate FiO2 04/29/25 11:58 89 16 100 04/29/25 11:52 Nasal Cannula 2.0 04/29/25 11:52 28 04/29/25 09:00 98.1 102/59 (73) 98.1 Total Intake and Output 04/28/25 04/28/25 04/29/25 15:00 23:00 07:00 Intake Total 100 ml 400 ml Output Total 0 ml Balance 100 ml 400 ml medications Current Medications Medications Dose Ordered Sig/Howie Route Start Time Stop Time Status Last Admin Dose Admin Acetaminophen 650 mg Q6HP PRN PO 04/28/25 14:15 Ondansetron HCl 4 mg Q4HP PRN IV 04/28/25 14:15 Enoxaparin Sodium 40 mg DAILY SC 04/29/25 10:00 04/29/25 10:04 40 MG Ipratropium [place] 0.5 mg Q4HR NEB 04/29/25 10:00 04/29/25 13:56 0.5 MG Levalbuterol HCl 0.625 mg Q4HR NEB 04/29/25 18:00 Budesonide 0.5 mg BID NEB 04/29/25 22:00 Montelukast Sodium 10 mg HS PO 04/29/25 22:00 Loratadine 10 mg DAILY PO 04/30/25 10:00 Prednisone 40 mg DAILY PO 04/30/25 10:00 Famotidine 20 mg Q12HR PO 04/29/25 22:00 Fluticasone Propionate 50 mcg Q12HR EACHNOSTRI 04/29/25 22:00 Examination General Appearance: Alert, Oriented X3, Cooperative, No acute distress HEENT: Atraumatic, PERRLA, EOMI, Mucous membrane moist/pink Respiratory: Bilateral rhonchi Cardiovascular: Regular rate, Normal S1, Normal S2, No murmurs, no chest wall tenderness Abdominal: Normal bowel sounds, Soft, No tenderness, No hepatospenomegaly, No masses Extremities: No clubbing, No cyanosis, No edema, Normal pulses, No tenderness/swelling Skin: No rashes, No breakdown, No significant lesion Neuro: Normal gait, Normal speech, Strength at 5/5 X4 ext, Normal tone, Sensation intact, Cranial nerves 3-12 NL, Reflexes 2+ Psych/Mental Status: Mental status NL, Mood NL laboratory and microbiology Laboratory Tests 04/29/25 07:15 Test 04/29/25 07:15 Range/Units Serum Glucose 129 H 74-106 mg/dL Labs and/or images reviewed: Labs reviewed by me, Image(s) reviewed by me Problem List/Assessment/Plan Problem List/Assessment/Plan Acute hypoxic respiratory failure, likely due to asthma exacerbation Asthma exacerbation Allergic rhinitis GERD * Chest x-ray shows, no intrathoracic abnormalities Plan/recommendation * Oxygen through nasal cannula * Breathing treatment * Prednisolone 40 mg daily * Montelukast, Flonase, and Pepcid DIET: Regular diet DVT PROPHYLAXIS: Lovenox CODE STATUS: Goal of care discussed for more than 18 minutes, full code DISPOSITION: Med/surge Patient's status and plan discussed with the patient. Case discussed with Dr. Petersen. Plan discussed with: Patient, Other (RN) My Orders My Orders Orders - KIKI LIANG Procedure Category Date Status Time Ipratropium Medneb PHA 04/29/25 In Process (Atrovent Medneb) 10:00 Montelukast Tablet PHA 04/29/25 In Process (Singulair Tablet) 22:00 Prednisone Tablet PHA 04/30/25 In Process 10:00 Famotidine Tablet PHA 04/29/25 In Process (Pepcid Tablet) 22:00 Fluticasone Nasal PHA 04/29/25 In Process [place] (Flonase [place]) 22:00 Loratadine Tablet PHA 04/30/25 In Process (Claritin Tablet) 10:00 Complete Blood Count LAB 04/30/25 Verified 04:00 Comprehensive LAB 04/30/25 Verified Metabolic Panel 04:00 Date of Service: Apr 29, 2025 Billing Provider: SRIKANTH PETERSEN MD Common Visit Codes: [id number] INP/OBS CARE(HIGH) KIKI LIANG RESDIENT Apr 29, 2025 17:12 SRIKANTH PETERSEN MD May 01, 2025 23:01
[2025-04-29] MEDS: BUDESONIDE (INHALATION) 0.5 MG/2 ML NEB NEB SCH (19:00)
[2025-04-29] MEDS: LEVALBUTEROL HCL 1.25 MG/3 ML NEB NEB SCH (19:00)
[2025-04-29] MEDS: MONTELUKAST SODIUM 10 MG TAB PO SCH (21:11)
[2025-04-29] MEDS: FAMOTIDINE 20 MG TAB PO SCH (21:11)
[2025-04-29] MEDS: FLUTICASONE PROP NASAL SPR 0.05 % (50MCG) 16GM EACHNOSTRI SCH (21:12)
[2025-04-30] VITALS (11 sets, daily range): BP systolic 96–132; BP diastolic 44–75; PULSE 76–107; RESP 14–18; TEMP 97.8–98.6; O2SAT 97–100
[2025-04-30 07:30] LABS: Hematocrit 34.3 % (36.0-46.0); Hemoglobin 11.9 g/dL (12.2-16.2); Mean Corpuscular Hemoglobin 30.8 pg (28.0-32.0); Mean Corpuscular Volume 88.8 fL (80.0-100.0); Nucleated Red Blood Cells % 0.0 %
[2025-04-30 07:39] LABS: Alanine Aminotransferase 12 U/L (7-40); Alkaline Phosphatase 67 U/L (46-116); Anion Gap 10 (5-15); BUN/Creatinine Ratio 16.7 (10.0-20.0); Blood Urea Nitrogen 10 mg/dL (9-23); Carbon Dioxide 22 mmol/L (20-31); Potassium 4.1 mmol/L (3.5-5.1); Sodium 142 mmol/L (136-145); Total Protein 5.8 g/dL (5.7-8.2)
[2025-04-30 07:40] LABS: Albumin 3.9 g/dL (3.2-4.8); Bilirubin, Total 0.3 mg/dL (0.2-1.0)
[2025-04-30 07:44] LABS: Calcium 8.4 mg/dL (8.7-10.4); Chloride 110 mmol/L (98-107); Glucose 110 mg/dL (74-106)
[2025-04-30] MEDS: MAGNESIUM SULFATE 1GM/100ML 100 ML IV SCH (09:00)
[2025-04-30] MEDS ORDERED: FLUT1SPR9 (09:16)
[2025-04-30] MEDS ORDERED: MONT-8 PO (09:16)
[2025-04-30] MEDS ORDERED: BUDE1AER4 IN (09:16)
[2025-04-30] MEDS ORDERED: FAMO20TA10 PO (09:16)
[2025-04-30] MEDS ORDERED: PRED20TA2 PO ×2 (10:11→10:12)
[2025-04-30] MEDS: predniSONE 20 MG TAB PO SCH (10:14)
[2025-04-30] MEDS: LORATADINE 10 MG TAB PO SCH (10:14)
--- NOTE | 2025-04-30 16:44 | DVHDSRES ---
Discharge Summary Date of Admission Resident Creating Document: KIKI LIANG RESDIENT Apr 28, 2025 at 14:14 Date of Discharge: Apr 30, 2025 Labs/Diagnostic Data: Laboratory Results Test 04/30/25 07:02 04/28/25 14:16 White Blood Count 16.2 10^3/uL (4.4-10.8) Red Blood Count 3.87 10^6/uL (4.0-5.20) Hemoglobin 11.9 g/dL (12.2-16.2) Hematocrit 34.3 % (36.0-46.0) Mean Corpuscular Volume 88.8 fL (80.0-100.0) Mean Corpuscular Hemoglobin 30.8 pg (28.0-32.0) Mean Corpuscular Hemoglobin Concent 34.7 g/dL (32.0-36.0) Red Cell Distribution Width 14.1 % (11.8-14.3) Platelet Count 306 10^3/uL (140-450) Mean Platelet Volume 8.3 fL (6.9-10.8) Neutrophils (%) (Auto) 89.2 % (37.0-80.0) Lymphocytes (%) (Auto) 6.4 % (10.0-50.0) Monocytes (%) (Auto) 4.2 % (0.0-12.0) Eosinophils (%) (Auto) 0.0 % (0.0-7.0) Basophils (%) (Auto) 0.2 % (0.0-2.0) Neutrophils # (Auto) 14.4 10 ^3/uL (1.6-8.6) Lymphocytes # (Auto) 1.0 10 ^3/uL (0.4-5.4) Monocytes # (Auto) 0.7 10 ^3/uL (0-1.3) Eosinophils # (Auto) 0 10 ^3/uL (0-0.8) Basophils # (Auto) 0 10 ^3/uL (0-0.2) Nucleated Red Blood Cells 0.0 % Sodium Level 142 mmol/L (136-145) Potassium Level 4.1 mmol/L (3.5-5.1) Chloride Level 110 mmol/L (98-107) Carbon Dioxide Level 22 mmol/L (20-31) Anion Gap 10 (5-15) Blood Urea Nitrogen 10 mg/dL (9-23) Creatinine 0.60 mg/dL (0.550-1.02) Glomerular Filtration Rate Calc 118 mL/min (>90) BUN/Creatinine Ratio 16.7 (10.0-20.0) Serum Glucose 110 mg/dL (74-106) Calcium Level 8.4 mg/dL (8.7-10.4) Total Bilirubin 0.3 mg/dL (0.2-1.0) Aspartate Amino Transferase (AST) 13 U/L (13-40) Alanine Aminotransferase (ALT) 12 U/L (7-40) Alkaline Phosphatase 67 U/L (46-116) Total Protein 5.8 g/dL (5.7-8.2) Albumin 3.9 g/dL (3.2-4.8) Urine Color Colorless (Yellow) Urine Clarity Clear (Clear) Urine pH 6.5 (5.0-9.0) Urine Specific [place] 1.009 (1.001-1.035) Urine Protein Negative (Negative) Urine Ketones Negative (Negative) Urine Blood Negative /uL (Negative) Urine Nitrite Negative (Negative) Urine Bilirubin Negative (Negative) Urine Urobilinogen Normal mg/dL (Negative) Urine Leukocyte Esterase Negative /uL (Negative) Urine RBC 1 /hpf (0 - 4) Urine Microscopic WBC 1 /HPF (0-5) Urine Squamous Epithelial Cells Few /hpf (<5) Urine Bacteria None seen /hpf (None Seen) Urine Mucus Few (None Seen) Urine Glucose Normal mg/dL (Normal) Urine Opiates Screen Neg (NEGATIVE) Urine Fentanyl Screen Neg (NEGATIVE) Urine Barbiturates Screen Neg (NEGATIVE) Urine Phencyclidine Screen Neg (NEGATIVE) Urine Amphetamines Screen Pos (NEGATIVE) Urine Benzodiazepines Screen Neg (NEGATIVE) Urine Cocaine Screen Neg (NEGATIVE) Urine Cannabinoids Screen Neg (NEGATIVE) Other Laboratory Tests 04/30/25 07:02 Brief Hx & Hospital Course: HISTORY OF PRESENT ILLNESS: This is a 39-year-old female with past medical history of asthma came to the hospital due to shortness of breaths. Per patient she has shortness of breath since 1 days, use inhaler at home better did not relieved and shortness of breaths which prompted this visit. She also reports of mild chest discomfort. She denies fever, cough, or any recent sick contact. Previous hospitalization: Recurrent hospitalization due to asthma exacerbation, recently was 2 months back has never been intubated PMHx: Asthma PSHx: No significant Family history: No significant Social history: Ex-smoker, denies current drug use Home medication: Albuterol and fluticasone Allergic history: Ampicillin and amoxicillin HOSPITAL COURSE: The patient was admitted at the line of acute hypoxic respiratory failure due to asthma exacerbation. The patient was started on IV steroid methylprednisolone, breathing treatment and IV magnesium. The patient was also given Flonase, montelukast and oxygen through nasal cannula. Chest x-ray was performed and showed no intrathoracic abnormalities. On 04/30/2025, the patient was feeling better since admission. Discharge plan discussed with the patient the patient discharged home. DISCHARGE PLAN: Follow up with the PCP within 1 week of the discharge. Follow up with the discharge Clinic within 1 week of the discharge Montelukast 10 mg daily Flonase Symbicort twice daily Symbicort PRN Continue albuterol nebulization as needed at home Prednisolone 40 mg daily for 5 days Pepcid 20 mg daily FINAL DIAGNOSIS: Acute hypoxic respiratory failure, likely due to asthma exacerbation Asthma exacerbation Allergic rhinitis GERD Condition at Discharge: Good Final Diagnosis/Problems List Asthma exacerbation. Discharge Disposition: Home Discharge Instruct/Medications Diet: Regular Activity: No Restrictions, As Tolerated Follow Up/Referral: With the PCP within 1 week of the discharge. Medications: Symbicort 2 times daily Symbicort as needed 2 times daily for shortness of breaths Montelukast 10 mg daily Pepcid 20 mg daily Flonase once daily for allergic rhinitis Continue home nebulization as needed Prednisone 40 mg daily for 5 days Prednisone 40 mg as needed at home Scheduled Albuterol Sulfate (Ventolin), 2.5 MG NEB TID Azithromycin (Zithromax Tri-Lester), 500 MG PO DAILY Azithromycin (Zithromax Tri-Lester), 500 MG PO DAILY Budesonide-Formoterol Fumarate (Budesonide/Formoterol Fum 160-4.5 Mcg/Act), 1 AER IN BID Budesonide-Formoterol Fumarate (Budesonide/Formoterol Fum 160-4.5 Mcg/Act), 1 AER IN BID Famotidine (Pepcid Tablet), 1 TAB PO DAILY Fluticasone Propionate (Nasal) (Flonase Allergy Relief Ch), 50 MCG NA DAILY Montelukast Sodium (Montelukast Sodium), 1 TAB PO DAILY Prednisone (Prednisone), 60 MG PO DAILY Prednisone (Prednisone), 20 MG PO TID Prednisone (Prednisone), 60 MG PO DAILY Prednisone (Prednisone), 20 MG PO QAM Prednisone (Prednisone), 50 MG PO DAILY Prednisone (Prednisone), 40 MG PO DAILY Prednisone (Prednisone), 40 MG PO DAILY Scheduled PRN Albuterol Sulfate (Ventolin Mdi), 90 MCG IN TIDP PRN Albuterol Sulfate (Albuterol Sulfate), 1.25 MG IN TIDP PRN Albuterol Sulfate (Ventolin Mdi), 90 MCG IN Q6HP PRN Albuterol Sulfate (Albuterol Sulfate (5 mg/ml) 0.5%), 1 NEB IN Q6HP PRN Budesonide-Formoterol Fumarate (Budesonide/Formoterol Fum 160-4.5 Mcg/Act), 1 AER IN BID PRN Discontinued Medications Albuterol Sulfate (Albuterol Sulfate), 0.083 % IN Q6HP PRN Albuterol Sulfate (Albuterol Sulfate Hfa), 108 MCG IN Q6HP PRN Albuterol Sulfate (Albuterol Sulfate), 1.25 MG IN BID Albuterol Sulfate (Ventolin Mdi), 90 MCG IN Q6HP PRN Albuterol Sulfate (Albuterol Sulfate Hfa), 108 MCG IN TID Albuterol Sulfate (Ventolin), 1 VIAL NEB Q4HR Discharge Statement: "Patient was advised to return to the ER or call 911 if any headaches, dizziness, shortness of breath, chest pain, abdominal pain, bleeding, fevers, or worsening of medical condition. Patient was counseled about treatment plan, medications, possible side effects, patientverbalized understanding. All questions were answered to the best of my ability. This discharge took greater then 30 minutes in planning, reviewing documentation, counseling the patient, and discussing with other team members." ASSESSMENT ASSESSMENT Assessment Asthma exacerbation. Date of Service: Apr 30, 2025 Billing Provider: SRIKANTH PETERSEN MD Common Visit Codes: 87028-RCN/OBS DISCH DAY >30min GARTHRENEMEKHI RESDIENT Apr 30, 2025 16:44 SRIKANTH PETERSEN MD May 01, 2025 23:08
== END 2025-04-30 13:50 | disposition home or self-care (01) | DRG 133 ==
LOC: ER 11:41 → EDBD 11:41 → OVERFLOW 14:14 → WEST WING 21:09
PROVIDERS: ADMIT Student in an Organized Health Care Education/Training Program; ATTEND Student in an Organized Health Care Education/Training Program
DX: J96.01 Acute respiratory failure with hypoxia (principal); R65.10 Systemic inflammatory response syndrome (SIRS) of non-infectious origin without acute organ dysfunction; J45.901 Unspecified asthma with (acute) exacerbation; K21.9 Gastro-esophageal reflux disease without esophagitis; J30.9 Allergic rhinitis, unspecified; Z87.891 Personal history of nicotine dependence; Z79.899 Other long term (current) drug therapy; Z88.0 Allergy status to penicillin
CPT/HCPCS: 36415; 71045; 80048; 80053; 80307; 81001; 85025; 94640; 94644; 96365; 96375; 99291; G0378